=== PATIENT | male | born 2000 | race Caucasian/White ===

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

== ENCOUNTER 2022-09-09 19:29 | Emergency (ER) | payer BC, MEDICAID, SELFPAY ==
[2022-09-09 19:41] VITALS: BP 137/88; PULSE 112; RESP 17; O2SAT 100; BMI 23.0
--- NOTE | 2022-09-09 19:53 | W.ED.SYNCOPE ---
HPI - Syncope General: Chief Complaint: Syncope Stated Complaint: Possible Heat Exhaustion Time Seen by Provider: 09/09/22 19:50 History of Present Illness: 22-year-old male patient comes in today after passing out while doing yard work. 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 Patient reports he was not drinking as much fluid as he probably should have been. Patient feels a little better at this time but continues to have a headache and is lightheaded. Patient reported some left-sided numbness. Associated symptoms: Deny chest pain Review of Systems General: Reports: 10 or more systems reviewed and unremarkable except in HPI and below Const: Reports: malaise Card: Denies: chest pain Resp: Denies: dyspnea GI: Reports: vomiting : Denies: difficulty urinating Musc: Denies: back pain Skin/Breast: Denies: rash Neuro: Reports: numbness in extremities Physical Exam Const: COMMON NORMALS: alert HENMT: COMMON NORMALS: atraumatic HEAD & SCALP: atraumatic Neck/C-Spine: COMMON NORMALS: full ROM Resp: COMMON NORMALS: normal respiratory effort and clear to auscultation bilaterally AUSCULTATION: clear to auscultation bilaterally Cardio: COMMON NORMALS: regular rate and regular rhythm RATE: regular rate RHYTHM: regular rhythm GI: COMMON NORMALS: Soft to palpation and non-tender PALPATION: Yes Soft to palpation Back/Pelvis: COMMON NORMALS: thoracic and lumbar spine normal to inspection Extremity: COMMON NORMALS: normal to inspection, full ROM and no pedal edema Neuro: SENSORIUM/ORIENTATION: Yes alert Skin: COMMON NORMALS: turgor normal GENERAL SKIN EXAM: turgor normal Course Vital Signs: Vital signs: Vital Signs Temperature 98.0 F 09/09/22 20:26 Pulse Rate 88 09/09/22 21:47 Respiratory Rate 18 09/09/22 21:47 Blood Pressure 137/88 09/09/22 19:41 Pulse Oximetry 100 09/09/22 21:47 Oxygen Delivery Me thod Room Air 09/09/22 20:14 MDM - Syncope Medical Decision Making 22-year-old male patient comes in today with complaints of nausea and vomiting, heat exhaustion, and passing out. On exam patient appears nontoxic. Patient is alert. Patient did report some numbness in the left side. No focal neural deficits are noted. Skin is warm and dry. Vital signs are normal. Patient's eyes appear sunken. Differential diagnosis includes but not limited to heat exhaustion, heat stroke, dehydration, hyponatremia. CBC had some concentration noted on the blood values with a 15,000 white count, 17 hemoglobin. CMP noted 133 sodium, 93 chloride, 20.9 anion gap, and a 1.3 creatinine. CPK was elevated at 1000. Patient was infused with 2 L of crystalloid solution with improvement of symptoms and treatment of dehydration with heat exhaustion.. Patient was able to tolerate oral fluids and discharged to home with instructions to avoid being, overheated or dehydrated. Patient reported understanding of care plan and need for follow-up. Lab Data 09/09/22 20:08 09/09/22 20:08 Laboratory Results WBC 15.8 10^3/uL (4.5-13.0) H 09/09/22 20:08 RBC 5.83 10^6/uL (4.1-5.3) H 09/09/22 20:08 Hgb 17.4 g/dL (11.7-16.6) H 09/09/22 20:08 Hct 49.7 % (42.0-52.0) 09/09/22 20:08 MCV 85.2 fl (80-94) 09/09/22 20:08 MCH 29.8 pg (28.0-34.0) 09/09/22 20:08 MCHC 35.0 g/dL (30.0-36.0) 09/09/22 20:08 RDW 12.1 % (12.1-15.1) 09/09/22 20:08 Plt Count 375 10^3/cmm (130-400) 09/09/22 20:08 MPV 10.5 fL (7.4-10.4) H 09/09/22 20:08 Neut % (Auto) 79.9 % 09/09/22 20:08 Lymph % (Auto) 11.4 % 09/09/22 20:08 [place] % (Auto) 7.8 % 09/09/22 20:08 Eos % (Auto) 0.1 % 09/09/22 20:08 Baso % (Auto) 0.4 % 09/09/22 20:08 Neut # (Auto) 12.63 10^3/uL (1.8-8.0) H 09/09/22 20:08 Lymph # (Auto) 1.8 10^3/uL (1.5-6.5) 09/09/22 20:08 [place] # (Auto) 1.2 10^3/uL (0.2-0.9) H 09/09/22 20:08 Eos # (Auto) 0.0 10^3/uL (0.0-0.8) 09/09/22 20:08 Baso # (Auto) 0.1 10^3/uL (0.0-0.1) 09/09/22 20:08 Nucleated RBC % (auto) 0 % 09/09/22 20:08 Nucleated RBCs # 0.0 /100WBC 09/09/22 20:08 Sodium 133 mmol/L (136-145) L 09/09/22 20:08 Potassium 3.9 mmol/L (3.5-5.1) 09/09/22 20:08 Chloride 93 mmol/L (98-107) L 09/09/22 20:08 Carbon Dioxide 23 mmol/L (22-29) 09/09/22 20:08 Anion Gap 20.9 (5-19) H 09/09/22 20:08 BUN 20 mg/dL (6-20) 09/09/22 20:08 Creatinine 1.3 mg/dL (0.7-1.2) H 09/09/22 20:08 GFR Calculation 70.4 mL/min (90-130) L 09/09/22 20:08 Glucose 86 mg/dL (65-115) 09/09/22 20:08 Calculated Osmolality 278 mOsm/kg (285-295) L 09/09/22 20:08 Calcium 10.7 mg/dL (8.5-10.5) H 09/09/22 20:08 Total Bilirubin 0.6 mg/dL (0.15-1.2) 09/09/22 20:08 AST 32 U/L (0-40) 09/09/22 20:08 ALT 20 U/L (0-41) 09/09/22 20:08 Alkaline Phosphatase 110 U/L (40-130) 09/09/22 20:08 Creatine Kinase 1002 U/L (39-308) H* 09/09/22 20:08 Total Protein 8.6 g/dL (6.6-8.7) 09/09/22 20:08 Albumin 5.4 g/dL (3.5-5.2) H 09/09/22 20:08 Globulin 3.2 g/dL (1.3-4.6) 09/09/22 20:08 EKG Data EKG 1: EKG interpretation date: 09/09/22 EKG interpretation time: 20:15 Interpretation: EKG shows a regular rhythm of sinus tachycardia at [address] elevation or ectopy is noted. No prior exam was available for comparison. Discharge Plan Discharge Patient Disposition: Home Clinical Impression: Dehydration Heat exhaustion Qualifiers: Encounter type: initial encounter Qualified Code(s): T67.5XXA - Heat exhaustion, unspecified, initial encounter Condition: Stable Prescriptions: No Action triamcinolone acetonide 0.1 % cream 1 applic topical BID Qty: 30 0RF Rx Instructions: apply to insect bite until redness and swelling improves then stop Discharge Orders: Discharge ED (Routine); Ordered 09/09/22 Ordered By: Vickey Alcaraz Referrals: Ludwig Yung MD [Primary Care Provider] - Discharge Diet: Usual diet Discharge Activity: Increase activity as tolerated Patient Instructions: Heat Exhaustion (ED) Activity Restrictions/Additional Instructions: Home and rest. Drink plenty of water and fluids. Use electrolyte solutions such as Gatorade, body armor, or other similar solutions in order to maintain electrolytes when sweating a lot. Most important now is to stay hydrated with water. Avoid working in the heat of the day. Follow-up with primary care for recheck. Return to ED for new concerns. Coding Level of Care Code ED Padded Products Finisher for Jarett Smith
--- NOTE | 2022-09-09 19:56 | ECG_ITS ---
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 Measurements Intervals [place] Rate: 108 P: 61 GA: 154 QRS: 56 QRSD: 96 T: 64 QT: 323 QTc: 434 Interpretive Statements SINUS TACHYCARDIA ABNORMAL RHYTHM ECG Compared to ECG 11/03/2019 09:50:56 Sinus rhythm no longer present Electronically Signed On 09-10-2022 13:01:15 CDT by Michelle Hilliard M.D. [email or web address] Baolihua [employer] Stockmarion [email or web address]/[id number]
[2022-09-09] MEDS: lactated ringers 1,000 ML 999 ML IV (20:11)
[2022-09-09] MEDS: sodium chloride 0.9% 1,000 ML 999 ML IV (20:13)
[2022-09-09 20:14] VITALS: PULSE 102; RESP 18; TEMP 36.9; O2SAT 99
[2022-09-09 20:18] LABS: Basophils # 0.1 10^3/uL (0.0-0.1); Basophils % 0.4 %; Eosinophils % 0.1 %; Hematocrit 49.7 % (42.0-52.0); Hemoglobin 17.4 g/dL (11.7-16.6); Lymphocytes # 1.8 10^3/uL (1.5-6.5); Lymphocytes % 11.4 %; Mean Corpuscular Hemoglobin 29.8 pg (28.0-34.0); Mean Corpuscular Volume 85.2 fl (80-94); Mean Platelet Volume 10.5 fL (7.4-10.4); Monocytes # 1.2 10^3/uL (0.2-0.9); Monocytes % 7.8 %; Neutrophils # 12.63 10^3/uL (1.8-8.0); Neutrophils % 79.9 %; Nucleated Red Blood Cells % 0 %; Platelet Count 375 10^3/cmm (130-400); Red Blood Count 5.83 10^6/uL (4.1-5.3); Red Cell Distribution Width 12.1 % (12.1-15.1); White Blood Count 15.8 10^3/uL (4.5-13.0)
[2022-09-09 20:26] VITALS: TEMP 36.7
[2022-09-09 20:42] LABS: Alanine Aminotransferase 20 U/L (0-41); Albumin Level 5.4 g/dL (3.5-5.2); Alkaline Phosphatase 110 U/L (40-130); Anion Gap 20.9 (5-19); Aspartate Amino Transferase 32 U/L (0-40); Blood Urea Nitrogen 20 mg/dL (6-20); Calcium 10.7 mg/dL (8.5-10.5); Carbon Dioxide 23 mmol/L (22-29); Chloride 93 mmol/L (98-107); Globulin 3.2 g/dL (1.3-4.6); Glomerular Filtration Rate 70.4 mL/min (90-130); Glucose 86 mg/dL (65-115); Osmolality Calculated 278 mOsm/kg (285-295); Potassium 3.9 mmol/L (3.5-5.1); Sodium 133 mmol/L (136-145); Total Bilirubin 0.6 mg/dL (0.15-1.2); Total Protein 8.6 g/dL (6.6-8.7)
[2022-09-09 20:43] LABS: Creatine Phosphokinase 1002 U/L (39-308)
[2022-09-09 21:47] VITALS: PULSE 88; RESP 18; O2SAT 100
== END 2022-09-09 21:48 | disposition home or self-care (01) ==
PROVIDERS: Emergency Provider Nurse Practitioner Family; PCP Family Medicine
DX: T67.5XXA Heat exhaustion, unspecified, initial encounter (principal); X30.XXXA Exposure to excessive natural heat, initial encounter; Y93.H2 Activity, gardening and landscaping; Y92.007 Garden or yard of unspecified non-institutional (private) residence as the place of occurrence of the external cause; E86.0 Dehydration
CPT/HCPCS: 80053; 82550; 85025; 93005; 96360; 96361; 99284; J7030; J7120

== ENCOUNTER 2023-02-13 11:12 | Emergency (ER) | payer BC, MEDICAID, SELFPAY ==
[2023-02-13 11:44] VITALS: BP 171/104; PULSE 126; RESP 18; TEMP 36.4; O2SAT 100; BMI 24.3
--- NOTE | 2023-02-13 13:52 | ED_ITS ---
Documented by User: VICTORINO Moore 02/13/23 15:06 HPI - Male Genitourinary General: Chief complaint: Urogenital-Male Stated complaint: Genitals swollen/pain Time Seen by Provider: 02/13/23 13:10 Source: patient Mode of arrival: ambulatory Limitations: no limitations History of Present Illness: Patient presents emergency department today for evaluation treatment of bilateral testicular and scrotal swelling and tenderness. Patient states he noticed onset of discomfort on Wednesday night but did not notice the swelling until yesterday. He denied trauma. He states he is sexually active with 1 partner but does not use any type of barrier method. He denies discharge from the penis. He denies abdominal pains. He denies fever. He also denies any issues with his urine stream. Review of Systems General: Reports: 10 or more systems reviewed and unremarkable except in HPI and below Physical Exam Const: COMMON NORMALS: no acute distress, average body habitus, patient oriented x3 and alert HENMT: COMMON NORMALS: normocephalic, atraumatic, hearing grossly normal bilaterally and moist oral mucous membranes HEAD & SCALP: normocephalic and atraumatic Eye: COMMON NORMALS: Equal, round and reactive pupils present, EOMs intact bilaterally and conjunctivae normal CONJUNCTIVA: Yes conjunctivae normal PUPIL: Yes Equal, round and reactive pupils present Neck/C-Spine: COMMON NORMALS: no JVD Lymph: LYMPHATIC: no lymphadenopathy noted Resp: COMMON NORMALS: normal respiratory effort, No retractions and No use of accessory muscles Cardio: COMMON NORMALS: no JVD and regular rate RATE: regular rate : OTHER: Patient's examination revealed no signs of any abnormal scrotal swelling or erythema. Patient was nontender to palpation in the scrotal or testicular region. No tenderness on palpation to the epididymis bilaterally. However, patient has obvious edema circumferentially at the base of the head of the penis. Patient has no obvious lesions in the genital region. No obvious rashes. On examination, patient is dribbling his urine. Extremity: COMMON NORMALS: normal to inspection, full ROM and capillary refill normal Neuro: COMMON NORMALS: patient oriented x3 SENSORIUM/ORIENTATION: Yes alert Psych: COMMON NORMALS: mental status grossly normal, cooperative, normal af fect, speech normal and activity/motor behavior normal SPEECH: Yes normal speech Course Vital Signs: Vital signs: Vital Signs Temperature 97.6 F 02/13/23 15:26 Pulse Rate 126 H 02/13/23 15:26 Respiratory Rate 18 02/13/23 15:26 Blood Pressure 171/104 02/13/23 15:26 Pulse Oximetry 100 02/13/23 15:26 Oxygen Delivery Me thod Room Air 02/13/23 11:44 MDM - Male Medical Decision Making Patient's physical examination reveals issues with either balantis or paraphimosis-possibly both. Patient has no issues with swelling or tenderness in the scrotal/testicular region. Patient was nontender to palpation in the epididymal region bilaterally. Patient's urinalysis revealed no signs of any findings for yeast or bacteria/white blood cells in his urine specimen. At this time I do not think it is due to STI. I discussed the case with both Dr. Hernandez and Dr. Bentley who were both equally available for discussion. Explained my findings. They both encouraged manual decompression of the edema. With nursing home care provider, we did discuss the manual compression of the edema. Patient was willing to participate and on recheck after approximately 5 to 10 minutes, edema was found to have gone down quite a bit. At this point I was able to do more thorough evaluation and there is noted to be a discharge and accumulation underneath the gonzalez around the base of the head of the penis. Patient will be treated with antifungal medication. STI testing is still pending over the next couple of days. Hygiene and medication application information provided to the patient as well as return precautions for any discoloration, continued or worsening swelling, or any issues with his urine stream. Differential Diagnosis Unlikely urinary tract infection, priapism, urethritis, epididymitis, prostatitis, acute retention of urine or inguinal hernia Lab Data Laboratory Results Urine Color Straw (Yellow) 02/13/23 13:53 Urine Appearance Clear (CLEAR) 02/13/23 13:53 Urine pH 8 (5-7) H 02/13/23 13:53 Ur Specific [place] 1.010 (1.005-1.030) 02/13/23 13:53 Urine Protein Neg (Negative) 02/13/23 13:53 Urine Glucose (UA) Norm (Normal) 02/13/23 13:53 Urine Ketones Negative (Negative) 02/13/23 13:53 Urine Blood Neg (Negative) 02/13/23 13:53 Urine Nitrate Negative (Negative) 02/13/23 13:53 Urine Bilirubin Neg (Negative) 02/13/23 13:53 Prot Sulfosalicylic Acd Negative (Negative) 02/13/23 13:53 Urine Urobilinogen Norm mg/dL (Negative) 02/13/23 13:53 Ur Leukocyte Esterase Negative (Negative) 02/13/23 13:53 No radiology studies performed this visit Discharge Plan Discharge Patient Disposition: Home Clinical Impression: Balanitis Condition: Stable Prescriptions: New nystatin 100,000 unit/gram cream 1 applic topical TID 7 Days Qty: 30 0RF No Action triamcinolone acetonide 0.1 % cream 1 applic topical TID Rx Instructions: apply to insect bite until redness and swelling improves then stop Discharge Orders: Discharge ED (Routine); Ordered 02/13/23 Ordered By: Angle Lewis Referrals: Ludwig Yung MD [Primary Care Provider] - Discharge Diet: Usual diet Discharge Activity: Increase activity as tolerated Patient Instructions: Balanitis (ED) Activity Restrictions/Additional Instructions: Urine today shows no signs of any acute bacterial infection however, after reducing the swelling behind the head of your penis, I was able to better evaluate under the ridge. There is an accumulation of white material which makes me suspicious for a yeast infection. I am providing you a cream to apply to the area around the base of the head of your penis 3 times a day. However, you need to clean this area twice a day with warm water. You need to retract back the inflamed skin of the shaft of the penis to allow for full visualization of this area and to allow for complete and thorough irrigation and cleaning in this area as well. Make sure this area is completely dried off before applying this nystatin cream. You may continue to have issues with edema. We recommend compression of this area of edema for 3 to 5 minutes at a time a couple of times through the day if edema continues to be a problem however, if you have any inability to urinate, have continued or worsening swelling in this area, develop discoloration such as purple, blue, or duskiness of the end of the penis you to be seen and reevaluated back here in the emergency department. Otherwise, we recommend a follow-up appoint with your primary care doctor at the beginning of the week. Coding Level of Care Code ED Imaging Manager for Chg [employer]wd Documented by User: Jesu Bentley DO 02/14/23 12:38 HPI - Male Genitourinary General: Chief complaint: Urogenital-Male Stated complaint: Genitals swollen/pain Time Seen by Provider: 02/13/23 13:10 Course Vital Signs: Vital signs: Vital Signs Temperature 97.6 F 02/13/23 15:26 Pulse Rate 126 H 02/13/23 15:26 Respiratory Rate 18 02/13/23 15:26 Blood Pressure 171/104 02/13/23 15:26 Pulse Oximetry 100 02/13/23 15:26 Oxygen Delivery Me thod Room Air 02/13/23 11:44 MDM - Male Medical Decision Making Patient's physical examination reveals issues with either balantis or paraphimosis-possibly both. Patient has no issues with swelling or tenderness in the scrotal/testicular region. Patient was nontender to palpation in the epididymal region bilaterally. Patient's urinalysis revealed no signs of any findings for yeast or bacteria/white blood cells in his urine specimen. At this time I do not think it is due to STI. I discussed the case with both Dr. Hernandez and Dr. Bentley who were both equally available for discussion. Explained my findings. They both encouraged manual decompression of the edema. With nursing home care provider, we did discuss the manual compression of the edema. Patient was willing to participate and on recheck after approximately 5 to 10 minutes, edema was found to have gone down quite a bit. At this point I was able to do more thorough evaluation and there is noted to be a discharge and accumulation underneath the gonzalez around the base of the head of the penis. Patient will be treated with antifungal medication. STI testing is still pending over the next couple of days. Hygiene and medication application information provided to the patient as well as return precautions for any discoloration, continued or worsening swelling, or any issues with his urine stream. Chart reviewed and patient discussed with midlevel. Agree with assessment and p spencer. Lab Data Laboratory Results Urine Color Straw (Yellow) 02/13/23 13:53 Urine Appearance Clear (CLEAR) 02/13/23 13:53 Urine pH 8 (5-7) H 02/13/23 13:53 Ur Specific [place] 1.010 (1.005-1.030) 02/13/23 13:53 Urine Protein Neg (Negative) 02/13/23 13:53 Urine Glucose (UA) Norm (Normal) 02/13/23 13:53 Urine Ketones Negative (Negative) 02/13/23 13:53 Urine Blood Neg (Negative) 02/13/23 13:53 Urine Nitrate Negative (Negative) 02/13/23 13:53 Urine Bilirubin Neg (Negative) 02/13/23 13:53 Prot Sulfosalicylic Acd Negative (Negative) 02/13/23 13:53 Urine Urobilinogen Norm mg/dL (Negative) 02/13/23 13:53 Ur Leukocyte Esterase Negative (Negative) 02/13/23 13:53 Discharge Plan Discharge Patient Disposition: Home Clinical Impression: Balanitis Condition: Stable Prescriptions: New nystatin 100,000 unit/gram cream 1 applic topical TID 7 Days Qty: 30 0RF No Action triamcinolone acetonide 0.1 % cream 1 applic topical TID Rx Instructions: apply to insect bite until redness and swelling improves then stop Discharge Orders: Discharge ED (Routine); Ordered 02/13/23 Ordered By: Angle Lewis Referrals: Ludwig Yung MD [Primary Care Provider] - Discharge Diet: Usual diet Discharge Activity: Increase activity as tolerated Patient Instructions: Balanitis (ED) Activity Restrictions/Additional Instructions: Urine today shows no signs of any acute bacterial infection however, after reducing the swelling behind the head of your penis, I was able to better evaluate under the ridge. There is an accumulation of white material which makes me suspicious for a yeast infection. I am providing you a cream to apply to the area around the base of the head of your penis 3 times a day. However, you need to clean this area twice a day with warm water. You need to retract back the inflamed skin of the shaft of the penis to allow for full visualization of this area and to allow for complete and thorough irrigation and cleaning in this area as well. Make sure this area is completely dried off before applying this nystatin cream. You may continue to have issues with edema. We recommend compression of this area of edema for 3 to 5 minutes at a time a couple of times through the day if edema continues to be a problem however, if you have any inability to urinate, have continued or worsening swelling in this area, develop discoloration such as purple, blue, or duskiness of the end of the penis you to be seen and reevaluated back here in the emergency department. Otherwise, we recommend a follow-up appoint with your primary care doctor at the beginning of the week. Coding Level of Care Code ED Imaging Manager for Jarett Smith
[2023-02-13 14:02] LABS: Add Urine Microscopic? NO; Charge for UA Resulting for Rev
[2023-02-13 14:05] LABS: Urine Appearance Clear (CLEAR); Urine Color Straw (Yellow); pH Urine 8 (5-7)
[2023-02-13 14:06] LABS: Bilirubin Urine Neg (Negative); Blood Urine Neg (Negative); Glucose Urine UA Norm (Normal); Ketones Urine Negative (Negative); Leukocyte Esterase Urine Negative (Negative); Nitrate Urine Negative (Negative); Protein Urine Neg (Negative); Sulfosalicylic Acid Urine Negative (Negative); Urobilinogen Urine Norm (Negative)
[2023-02-13 15:26] VITALS: BP 171/104; PULSE 126; RESP 18; TEMP 36.4; O2SAT 100
[2023-02-16 02:05] LABS: Chlamydia Trachomatis RNA TMA NOT DETECTED (NOT DETECTED); Neisseria Gonorrhoeae RNA, TMA NOT DETECTED (NOT DETECTED)
== END 2023-02-13 15:24 | disposition home or self-care (01) ==
PROVIDERS: Emergency Provider Physician Assistant; PCP Family Medicine
DX: N48.1 Balanitis (principal)
CPT/HCPCS: 81003; 87491; 87591; 99283